=== PATIENT | male | born 1995 | race Two or more races ===

== ENCOUNTER 2022-10-06 08:10 | Emergency (ER) | payer OTHER ==
[~2022-10-06] VITALS: Ht 193 cm; Wt 116.8 kg
[2022-10-06 08:59] LABS: Eosinophils # (auto) 0 10 ^3/uL (0-0.8); Eosinophils % (auto) 0.2 % (0.0-7.0); Hemoglobin 15.1 g/dL (13.5-17.5); Lymphocytes # (auto) 1.8 10 ^3/uL (0.4-5.4); Mean Corpuscular Hemoglobin 25.8 pg (28.0-32.0); White Blood Cell 10.1 10^3/uL (4.4-10.8)
[2022-10-06 09:01] LABS: Basophils # (auto) 0.1 10 ^3/uL (0-0.2); Basophils % (auto) 0.8 % (0.0-2.0); Hematocrit 45.7 % (41.0-53.0); Lymphocytes % (auto) 17.8 % (10.0-50.0); Mean Corpuscular Hgb Conc. 33.1 g/dL (32.0-36.0); Mean Corpuscular Volume 78.2 fL (80.0-100.0); Monocytes # (auto) 0.6 10 ^3/uL (0-1.3); Monocytes % (auto) 5.6 % (0.0-12.0); Neutrophils # (auto) 7.6 10 ^3/uL (1.6-8.6); Neutrophils % (auto) 75.6 % (37.0-80.0); Nucleated Red Blood Cells % 0.3 %; Red Blood Cells 5.85 10^6/uL (4.5-5.90); Red Cell Distribution Width 14.5 % (11.8-14.3)
[2022-10-06 09:16] LABS: Calcium 8.9 mg/dL (8.5-10.1)
[2022-10-06 09:21] LABS: Albumin 3.8 g/dL (3.4-5.0); BUN/Creatinine Ratio 15.2 (10.0-20.0); Bilirubin, Total 0.3 mg/dL (0.2-1.0); Total Protein 7.9 g/dL (6.4-8.2)
[2022-10-06] MEDS ORDERED: ONDANSETRON ODT 4 MG TAB PO ONE (10:45)
[2022-10-06] MEDS ORDERED: ACETAMINOPHEN 325 MG TAB PO ONE (10:45)
[2022-10-06] MEDS ORDERED: ACETAMINOPHEN 500 MG TAB PO ONE (11:15)
[2022-10-06 11:25] VITALS: BP 130/81
[2022-10-06] MEDS ORDERED: ACET1CAP14 PO (12:16)
[2022-10-06] MEDS ORDERED: ONDA-144 PO (12:16)
== END 2022-10-06 12:36 | disposition home or self-care (01) ==
LOC: ER 08:10
DX: S06.0X0A Concussion without loss of consciousness, initial encounter (principal); M54.2 Cervicalgia; W18.39XA Other fall on same level, initial encounter; Y93.89 Activity, other specified; Y92.89 Other specified places as the place of occurrence of the external cause; Y99.0 Civilian activity done for income or pay
CPT/HCPCS: 36415; 70450; 72125; 80053; 82962; 84484; 85025; 93005; 99285; Q0162